=== PATIENT | female | born 1980 | race Hispanic/Latino ===

== ENCOUNTER 2017-11-20 21:08 | Emergency (ER) | payer BC ==
[2017-11-20 21:28] VITALS: BMI 30.4
[2017-11-20 21:30] VITALS: BP 117/81; PULSE 94; TEMP 97.8; O2SAT 100
[2017-11-20] MEDS ORDERED: Dexamethasone 4 mg/1 ml IM STA (21:47)
[2017-11-20] MEDS ORDERED: Naproxen 500 MG TAB PO STA (21:47)
[2017-11-20 21:52] VITALS: RESP 18
--- NOTE | 2017-11-20 22:38 | ED PDOC ---
Lower Extremity Pain/Injury Time Seen by Provider: 11/20/17 21:31 Chief Complaint (Nursing): Lower Extremity Problem/Injury Chief Complaint (Provider): Insect bites to right ankle History Per: Patient Onset/Duration Of Symptoms: Days (yesterday) Current Symptoms Are (Timing): Still Present Additional Complaint(s): 37 year old female presents to ED for evaluation of insect bites to the ankle since yesterday. This morning, patient returned from [place] and since the flight, she has had ankle swelling, localized itchiness, and a throbbing pressure like sensation. She took Benadryl this morning with minimal relief. Denies SOB, facial swelling, abdominal pain, N/V/D, cough, fever, chills, trauma /falls, rash, and calf tenderness. (+) prolonged immobility (flight home from [place]) PMD: none Past Medical History Reviewed: Historical Data, Nursing Documentation, Vital Signs Vital Signs: Last Vital Signs Temp 97.8 F 11/20/17 21:50 Pulse 94 H 11/20/17 21:50 Resp 18 11/20/17 21:50 BP 117/81 11/20/17 21:50 Pulse Ox 100 11/20/17 21:50 - Medical History Other PMH: PCOS - Surgical History Other surgeries: Reconstruction of right ankle - Family History Family History: States: Unknown Family Hx - Home Medications Home Medications: Ambulatory Orders Medication Instructions Recorded DiphenhydrAMINE [Benadryl] 50 mg PO Q6 #20 cap 11/20/17 Famotidine [Pepcid] 40 mg PO DAILY #5 tab 11/20/17 Naproxen 500 mg PO BID #20 tablet 11/20/17 - Allergies Allergies/Adverse Reactions: Allergies Allergy/AdvReac Type Severity Reaction Status Date / Time morphine Allergy ITCHING Verified 11/20/17 21:50 Quinolones Allergy RASH Verified 11/20/17 21:50 Sulfa (Sulfonamide Allergy RASH Verified 11/20/17 21:50 Antibiotics) tramadol Allergy ITCHING Verified 11/20/17 21:50 bees,wasps,hornets Allergy RASH Uncoded 11/20/17 21:50 Review of Systems ROS Statement: Except As Marked, All Systems Reviewed And Found Negative Constitutional: Negative for: Fever, Chills, Other (Facial swelling) Respiratory: Negative for: Shortness of Breath Musculoskeletal: Positive for: Other (Right ankle swelling and itchiness). Negative for: Leg Pain (calf tenderness) Physical Exam - Reviewed Nursing Documentation Reviewed: Yes Vital Signs Reviewed: Yes - Physical Exam Comments: GENERAL APPEARANCE: Patient is awake, alert, oriented x 3, in no acute distress. Resting comfortably. SKIN: Warm, dry; (-) cyanosis. NECK: Supple, FROM RIGHT ANKLE: (+) small effusion of right ankle with 5 erythematous bite like lesions,(+) 1+ pitting edema, (-) evidence of cellulitis, crusting, drainage, ecchymosis, warmth, skin break. Full ROM of ankle. (-) calf tenderness (+) distal pulses. Sensation intact throughout. Remainder of lower extremity nontender with FROM. HEART AND CARDIOVASCULAR: (-) irregularity; (-) murmur, (-) gallop. ABDOMEN AND GI: Soft; (-) tenderness (-) guarding (-) distention. CHEST AND RESPIRATORY: (-) rales, (-) rhonchi, (-) wheezes; breath sounds equal bilaterally. Respirations even and nonlabored. NEURO AND PSYCH: Mental status as above. Gait steady, speech clear. (-) facial asymmetry (-) aphasia. - ECG O2 Sat by Pulse Oximetry: 100 (RA) Pulse Ox Interpretation: Normal Medical Decision Making Medical Decision Making: Initial Impression: insect bites, ankle effusion Initial Plan: Diphenhydramine 50mg PO (Not driving home) Dexamethasone 10mg IM Naproxen 500mg PO Pepcid 40mg PO 22:30 On re-evaluation, patient reports improvement of symptoms. Ambulatory in ED with steady, unassisted gait. On exam, patient remains AAOx3, in no acute distress. Lungs clear to auscultation, cardiac RRR, abdomen soft, non-tender, repeat neuro exam shows no focal findings. VSS, stable for discharge. Lab/Diagnostic results d/w the patient in great detail. Diagnosis of insect bite , ankle effusion d/w the patient. Based on history, exam and diagnostic results, plan will be for outpatient follow up. Patient instructed to follow-up with pmd / referral provided / the clinic in 1- 2 days without fail. Advised to take medication as prescribed. Return to the emergency room at any time for any new or worsening symptoms. Patient states she fully agrees with and understands discharge instructions. States that she agrees with the plan and disposition. Verbalized and repeated discharge instructions and plan. I have given the patient opportunity to ask any additional questions. Scribe Attestation: Documented by Kris Jones acting as a scribe for Ana GALDAMEZ. Provider Scribe Attestation: All medical record entries made by the Scribe were at my direction and personally dictated by me. I have reviewed the chart and agree that the record accurately reflects my personal performance of the history, physical exam, medical decision making, and the department course for this patient. I have also personally directed, reviewed, and agree with the discharge instructions and disposition. Disposition - Clinical Impression Clinical Impression: Insect bite, Ankle effusion - Patient ED Disposition Is Patient to be Admitted: No Counseled Patient/Family Regarding: Diagnosis, Need For Followup, Rx Given - Disposition Referrals: María Whalen MD [Staff Provider] - Disposition: Routine/Home Disposition Time: 22:32 Condition: STABLE Additional Instructions: FOLLOW UP WITH PMD/ORTHO IN 1-2 DAYS FOR FURTHER EVALUATION. RETURN TO ED WITH ANY NEW OR WORSENING SYMPTOMS. REST ICE COMPRESS (BANDAGE) ELEVATE Prescriptions: DiphenhydrAMINE [Benadryl] 50 mg PO Q6 #20 cap Famotidine [Pepcid] 40 mg PO DAILY #5 tab Naproxen 500 mg PO BID #20 tablet Instructions: Insect Bites and Stings Forms: [employer] (Tuvaluan) Print Language: MACEDONIAN - POA Present On Arrival: None
== END 2017-11-20 22:50 | disposition home or self-care (01) ==
LOC: H.ER 21:08
DX: S90.561A Insect bite (nonvenomous), right ankle, initial encounter (principal); M25.471 Effusion, right ankle
CPT/HCPCS: 96372; 99282; J1100